=== PATIENT | female | born 1965 | race Caucasian/White ===

== ENCOUNTER → 2020-06-05 16:40 | Outpatient (CLI) | payer BC, SELFPAY ==
--- NOTE | 2020-06-05 | DI.MG.S_ITS ---
BILATERAL DIGITAL SCREENING MAMMOGRAM 3D/2D WITH CAD: 06/05/2020 CLINICAL: Routine screening. Comparison is made to exam dated: 07/08/2011 mammogram - outside location. There are scattered fibroglandular elements in both breasts. Current study was also evaluated with a Computer Aided Detection (CAD) system. No significant masses, calcifications, or other findings are seen in either breast. There has been no significant interval change. IMPRESSION: NEGATIVE There is no mammographic evidence of malignancy. A 1 year screening mammogram is recommended. This exam was interpreted at Station ID: [id number]. NOTE: For mammograms, a report in lay terms will be sent to the patient. Approximately 15% of breast malignancies will not be visualized mammographically. In the management of a palpable breast mass, a negative mammogram must not discourage biopsy of a clinically suspicious lesion. Electronically Signed By: Patrice [email or web address]:06/06/2020 08:39:52 letter sent: Normal Exam ACR BI-RADS Category 1: Negative 3341F
== END ==
PROVIDERS: PCP Family Medicine; Referring Provider Family Medicine; Visit Provider Family Medicine
DX: Z12.31 Encounter for screening mammogram for malignant neoplasm of breast (principal)
CPT/HCPCS: 77063; 77067

== ENCOUNTER 2020-06-21 09:51 | Outpatient (CLI) | payer BC, SELFPAY | END 2020-06-21 14:41 | disposition home or self-care (01) | LOC: PHYS 09:52 | PROVIDERS: PCP Family Medicine; Referring Provider Family Medicine; Visit Provider Family Medicine | DX: G60.9 Hereditary and idiopathic neuropathy, unspecified (principal) | CPT/HCPCS: 95886; 95911 ==

== ENCOUNTER → 2020-11-12 13:32 | Outpatient (CLI) | payer BC, SELFPAY ==
--- NOTE | 2020-11-12 | DI.MRI.S_ITS ---
PROCEDURE: MR LUMBAR SPINE WO CON INDICATIONS: Spinal stenosis, lumbar region with neurogenic cla TECHNIQUE: Noncontrast sagittal T1 spin echo and T2 fast echo, sagittal STIR, axial T1 and T2 fast spin echo through the lumbar spine. In cases with scoliosis, additional coronal T2 fast spin echo may be performed. COMPARISON: None. FINDINGS: Image quality: Excellent. Alignment and Curvature: Trace degenerative retrolisthesis of L1 on L2. Bone Marrow: Marrow is of normal overall signal. No acute vertebral body compression fractures. Spinal Cord: Conus medullaris terminates at the T12-L1 level. Visualized cord demonstrates normal signal and size. Paraspinous Soft Tissues: No paravertebral masses. T12-L1: Disc bulge. No canal stenosis or foraminal stenosis. L1-L2: Mild disc height loss. Disc bulge. No canal stenosis. Mild left foraminal stenosis. L2-L3: Mild disc height loss. Mild disc bulge. No canal stenosis or foraminal stenosis. L3-L4: Mild disc bulge. No canal stenosis or foraminal stenosis. L4-L5: Disc bulge. Right posterior lateral annulus tear subjacent to the right L5 nerve root in the right lateral recess. No significant canal stenosis. No significant foraminal stenosis. Bilateral facet hypertrophy. L5-S1: Moderate disc height loss. No canal stenosis. Bilateral facet hypertrophy. Moderate bilateral foraminal narrowing with mild flattening deformity on the exiting bilateral L5 nerve roots. IMPRESSION: 1. There is no canal stenosis identified. 2. At L4-L5, there is a right posterior lateral annulus tear associated with disc bulge. This is subjacent to the right L5 nerve root in the right lateral recess. 3. There is moderate bilateral foraminal narrowing at L5-S1. 4. Lower lumbar facet arthropathy. Dictated by: Jordy Ramsey M.D. on 11/12/2020 at 15:20 Approved by: Jordy Ramsey M.D. on 11/12/2020 at 15:26
== END ==
PROVIDERS: PCP Family Medicine; Referring Provider Family Medicine; Visit Provider Psychiatry & Neurology Neurology
DX: M48.062 Spinal stenosis, lumbar region with neurogenic claudication (principal); M48.07 Spinal stenosis, lumbosacral region; M47.816 Spondylosis without myelopathy or radiculopathy, lumbar region; M51.26 Other intervertebral disc displacement, lumbar region
CPT/HCPCS: 72148